=== PATIENT | female | born 2000 | race Caucasian/White ===

== ENCOUNTER 2024-03-09 03:19 | Emergency (ER) | payer BC | END 2024-03-09 04:53 | disposition left against medical advice (07) | LOC: ERS 03:19 | DX: Z53.21 Procedure and treatment not carried out due to patient leaving prior to being seen by health care provider (principal) ==

== ENCOUNTER 2024-03-13 15:38 | Outpatient (CLI) | payer BC | END 2024-03-13 15:39 | disposition home or self-care (01) | LOC: BICRAD 15:38 | PROVIDERS: ATTEND Nurse Practitioner Family | DX: S00.03XA Contusion of scalp, initial encounter (principal); S00.1 Contusion of eyelid and periocular area; R22.9 Localized swelling, mass and lump, unspecified; Y09 Assault by unspecified means; Z87.828 Personal history of other (healed) physical injury and trauma | CPT/HCPCS: 70150 ==